=== PATIENT | female | born 1985 | race Caucasian/White ===

== ENCOUNTER 2018-03-03 14:08 | Emergency (ER) | payer OTHER, MEDICAID, SELFPAY ==
[2018-03-03 14:13] VITALS: BP 139/89; PULSE 60; RESP 18; TEMP 35.9; O2SAT 100; BMI 28.3
--- NOTE | 2018-03-03 14:31 | DI.RAD.S_ITS ---
PROCEDURE: XR CHEST 1V INDICATIONS: chest pain TECHNIQUE: One view of the chest was acquired. COMPARISON: None. FINDINGS: Surgical changes and devices: None. Lungs and pleura: No pleural effusions or pneumothorax. Lungs are clear. Mediastinum: Mediastinal contours appear normal. Heart size is normal. Bones and chest wall: No suspicious bony lesions. Overlying soft tissues appear unremarkable. IMPRESSION: 1. No acute cardiopulmonary disease. Dictated by: Hill Plaza M.D. on 03/03/2018 at 15:45 Approved by: Hill Plaza M.D. on 03/03/2018 at 15:45
[2018-03-03 15:04] LABS: Add Manual Diff / Slide Review NO; Basophils Percent Auto 0.5 % (0-2); Eosinophils Percent Auto 1.2 % (2-4); Hematocrit 40.1 % (36-46); Hemoglobin 13.8 g/dL (12.0-16.0); Lymphocytes Percent Auto 26.5 % (25-40); Mean Corpuscular HGB Conc 34.4 % (30-36); Mean Corpuscular Hemoglobin 32.3 PG (26-34); Mean Corpuscular Volume 93.8 fL (80-100); Monocytes Percent Auto 7.3 % (3-14); Neutrophils Absolute Auto 4600 /uL (3000-5900); Neutrophils Percent Auto 64.5 % (50-75); Platelet Count 214 X10^3/uL (150-400); Red Blood Cell Count 4.28 X10^6/uL (4.0-5.2); Red Cell Distribution Width 12.9 % (11.6-14.8); White Blood Cell Count 7.1 X10^3/uL (4.5-11.0)
[2018-03-03 15:10] LABS: INR 1.1 (0.9-1.3); Prothrombin Time 12.1 SECONDS (10.1-12.7)
[2018-03-03 15:13] LABS: PTT Partial Thromboplastin Tim 31 SECONDS (26.4-36.2)
[2018-03-03 15:15] LABS: Alanine Aminotransferase 28 IU/L (9-52); Albumin 4.7 g/dL (3.5-5.0); Albumin Globulin Ratio 1.6 (1.0-2.8); Alkaline Phosphatase 63 U/L (38-126); Aspartate Aminotransferase 23 IU/L (14-36); BUN Creatinine Ratio 16.7 (6-22); Bilirubin Total 0.6 mg/dL (0.2-1.3); Blood Urea Nitrogen 15 mg/dL (7-17); Calcium 9.7 mg/dL (8.4-10.2); Carbon Dioxide 27 mmol/L (22-32); Chloride 104 mmol/L (98-107); Creatine Kinase 73 U/L (30-135); Estimated Glomerular Filt Rate > 60.0 mL/min (>60); Globulin 2.9 g/dL (1.7-4.1); Glucose 79 mg/dL (70-100); HEMOLYSIS < 15 (0-50); Lipase 89 U/L (23-300); Potassium 3.9 mmol/L (3.4-5.1); Sodium 141 mmol/L (137-145); Total Protein 7.6 g/dL (6.3-8.2)
[2018-03-03 15:18] VITALS: BP 137/87; PULSE 60; RESP 16; O2SAT 98
[2018-03-03 15:29] LABS: Troponin I < 0.012 ng/mL (0.01-0.034)
[2018-03-03 15:44] VITALS: BP 152/80; PULSE 66; RESP 16; O2SAT 100
[2018-03-03 16:30] VITALS: BP 135/86; PULSE 66; O2SAT 97
--- NOTE | 2018-03-03 17:19 | ED_ITS ---
HPI - Chest Pain <JENA Clarke - Last Filed: 03/03/18 21:35> General Chief Complaint: Chest Pain Stated Complaint: CHEST PAIN WHILE BREATHING Time Seen by Provider: 03/03/18 15:13 Source: patient Mode of arrival: ambulatory Limitations: no limitations History of Present Illness HPI narrative: 32-year-old healthy female here for complaint of pain into her right side of her chest that has been happening on and off over the past month. She states that she has increased pain with motion of the right arm. 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 She denies any direct trauma to the chest. No nausea or vomiting. No shortness of breath. She denies any other concerns or complaints at this time. No diaphoresis. MD complaint: chest pain Related Data Allergies Allergy/AdvReac Type Severity Reaction Status Date / Time No Known Drug Allergies Allergy Verified 03/03/18 14:18 Review of Systems <JENA Clarke - Last Filed: 03/03/18 21:35> Constitutional Denies chills, Denies fatigue, Denies fever(s), Denies lethargy and Denies weakness Eyes Denies change in vision, Denies eye discharge, Denies irritation and Denies loss of vision ENT Ears, Nose, Mouth, and Throat: Denies change in voice, Denies neck pain and Denies sore throat Cardiovascular Reports chest pain, Denies dyspnea and Denies dyspnea on exertion Respiratory Denies cough, Denies dyspnea, Denies dyspnea on exertion and Denies wheezing Gastrointestinal Gastrointestinal: Denies abdominal pain, Denies change in bowel habits, Denies diarrhea, Denies nausea and Denies vomiting Genitourinary Denies hematuria, Denies flank pain, Denies urinary incontinence and Denies urinary urgency Musculoskeletal Denies neck pain Integumentary/Breasts Denies pruritus, Denies erythema, Denies rash and Denies wounds Neurologic Denies confusion, Denies loss of vision and Denies weakness Psychiatric Denies anxiety, Denies confusion, Denies depression, Denies homicidal ideation and Denies suicidal ideation Endocrine Denies fatigue and Denies flushing Hematologic/Lymphatic Denies easy bruising Allergic/Immunologic Denies wheezing Exam <JENA Clarke Last Filed: 03/03/18 21:35> Initial Vital Signs Initial Vital Signs: Vital Signs Temperature 96.7 F L 03/03/18 14:13 Pulse Rate 60 03/03/18 14:13 Respiratory Rate 18 03/03/18 14:13 Blood Pressure 139/89 H 03/03/18 14:13 Pulse Oximetry 100 03/03/18 14:13 Const General: cooperative and well developed Nutritional Appearance: well nourished Orientation: alert, awake, oriented x3 and not confused HENMT Mouth: oral mucosae normal and moist mucous membranes Eyes Conjunctivae: conjunctivae normal Sclera: sclerae normal Pupils: PERRL EOM: EOM intact bilaterally Chest Chest: normal inspection of the chest Other: Tenderness on palpation to the right pectoral area Resp Effort & Inspection: normal respiratory effort, able to speak in complete sentences, no respiratory distress and no use of accessory muscles Auscultation: clear to auscultation bilaterally, no rales, no rhonchi and no wheezes Cardio Rate: regular rate Rhythm: regular rhythm Heart Sounds: no click, no gallops, no murmurs and no rubs Pulses: normal peripheral pulses Neuro General: alert, oriented x3, gait normal and no focal motor deficits Speech: speech normal <Sg Scott MD - Last Filed: 03/04/18 08:44> Initial Vital Signs Initial Vital Signs: Vital Signs Temperature 96.7 F L 03/03/18 14:13 Pulse Rate 60 03/03/18 14:13 Respiratory Rate 18 03/03/18 14:13 Blood Pressure 139/89 H 03/03/18 14:13 Pulse Oximetry 100 03/03/18 14:13 Scores <JENA Clarke - Last Filed: 03/03/18 21:35> HEART Score Heart Score history: Slightly Suspicious Heart Score EKG: Normal Heart Score Age: < 45 years old Heart Score risk factors: No known risk factors Heart Score troponin: < or = to normal limit Heart Score Total: 0 PERC Score Age greater than or equal to 50 years: No Heart rate greater than or equal to 100 bpm: No Room Air O2 Sat less than 95%: No Unilateral leg swelling: No Recent trauma or surgery: No Hemoptysis: No Prior PE or DVT: No Hormone Use: No Total PERC Score: 0 Course <JENA Clarke - Last Filed: 03/03/18 21:35> Orders Ordered: ED Orders 03/03/18 14:31 XR chest 1V Stat 03/03/18 14:40 Complete Blood Count AUTO DIFF Stat Comprehensive Metabolic Panel Stat Lipase Stat Partial Thromboplastin Time Stat Prothrombin Time INR Stat Troponin & CK Cardiac Panel Stat Vital Signs - 8 hr 03/03/18 14:13 03/03/18 15:18 03/03/18 15:44 Temperature 96.7 F L Pulse Rate 60 60 66 Respiratory Rate 18 16 16 Blood Pressure 139/89 H Blood Pressure [Left Arm] 137/87 H 152/80 H Pulse Oximetry 100 98 100 03/03/18 16:30 03/03/18 17:36 Temperature Pulse Rate 66 69 Respiratory Rate 16 Blood Pressure Blood Pressure [Left Arm] 135/86 H 104/73 Pulse Oximetry 97 100 <Sg Scott MD - Last Filed: 03/04/18 08:44> Orders Ordered: ED Orders 03/03/18 14:31 XR chest 1V Stat 03/03/18 14:40 Complete Blood Count AUTO DIFF Stat Comprehensive Metabolic Panel Stat Lipase Stat Partial Thromboplastin Time Stat Prothrombin Time INR Stat Troponin & CK Cardiac Panel Stat Vital Signs - 8 hr 03/03/18 14:13 03/03/18 15:18 03/03/18 15:44 Temperature 96.7 F L Pulse Rate 60 60 66 Respiratory Rate 18 16 16 Blood Pressure 139/89 H Blood Pressure [Left Arm] 137/87 H 152/80 H Pulse Oximetry 100 98 100 03/03/18 16:30 03/03/18 17:36 Temperature Pulse Rate 66 69 Respiratory Rate 16 Blood Pressure Blood Pressure [Left Arm] 135/86 H 104/73 Pulse Oximetry 97 100 MDM - Chest Pain <JENA Clarke - Last Filed: 03/03/18 21:35> Lab Data Result diagrams: 03/03/18 14:40 03/03/18 14:40 Lab Results 03/03/18 03/03/18 03/03/18 Range/Units 14:40 14:40 14:40 WBC 7.1 (4.5-11.0) X10^3/uL RBC 4.28 (4.0-5.2) X10^6/uL Hgb 13.8 (12.0-16.0) g/dL Hct 40.1 (36-46) % MCV 93.8 (80-100) fL MCH 32.3 (26-34) PG MCHC 34.4 (30-36) % RDW 12.9 (11.6-14.8) % Plt Count 214 (150-400) X10^3/uL Neut % (Auto) 64.5 (50-75) % Lymph % (Auto) 26.5 (25-40) % [place] % (Auto) 7.3 (3-14) % Eos % (Auto) 1.2 L (2-4) % Baso % (Auto) 0.5 (0-2) % Neut # (Auto) 4600 (8911-8177) /uL PT 12.1 (10.1-12.7) SECONDS INR 1.1 (0.9-1.3) APTT 31 (26.4-36.2) SECONDS Sodium 141 (137-145) mmol/L Potassium 3.9 (3.4-5.1) mmol/L Chloride 104 (98-107) mmol/L Carbon Dioxide 27 (22-32) mmol/L BUN 15 (7-17) mg/dL Creatinine 0.90 (0.52-1.04) mg/dL Estimated GFR > 60.0 (>60) mL/min BUN/Creatinine Ratio 16.7 (6-22) Glucose 79 (70-100) mg/dL Calcium 9.7 (8.4-10.2) mg/dL Total Bilirubin 0.6 (0.2-1.3) mg/dL AST 23 (14-36) IU/L ALT 28 (9-52) IU/L Alkaline Phosphatase 63 (38-126) U/L Total Creatine Kinase 73 (30-135) U/L Troponin I < 0.012 (0.01-0.034) ng/mL Total Protein 7.6 (6.3-8.2) g/dL Albumin 4.7 (3.5-5.0) g/dL Globulin 2.9 (1.7-4.1) g/dL Albumin/Globulin Ratio 1.6 (1.0-2.8) Lipase 89 (23-300) U/L Imaging Data Chest x-ray: Radiologist's impression: PROCEDURE: XR CHEST 1V INDICATIONS: chest pain TECHNIQUE: One view of the chest was acquired. COMPARISON: None. FINDINGS: Surgical changes and devices: None. Lungs and pleura: No pleural effusions or pneumothorax. Lungs are clear. Mediastinum: Mediastinal contours appear normal. Heart size is normal. Bones and chest wall: No suspicious bony lesions. Overlying soft tissues appear unremarkable. IMPRESSION: 1. No acute cardiopulmonary disease. Dictated by: Hill Plaza M.D. on 03/03/2018 at 15:45 Approved by: Hill Plaza M.D. on 03/03/2018 at 15:45 ECG Data Interpretation: EKG shows normal sinus rhythm with no ST elevation or depression. No ectopy. Ventricular rate of 60. Pr interval of 136. QRS duration of 82. QT of 378. MDM Narrative Medical decision making narrative: Chest x-ray was obtained was unremarkable. EKG shows sinus rhythm with no ST elevation or depression. No ectopy. CBC and Chem panel were obtained were unremarkable. Cardiac enzymes were negative. Heart score was 0. Perc score was 0. Pain is reproducible to the right chest area with palpation. Signs and symptoms presents as chest wall pain. Over-the- counter Tylenol Motrin as needed for any discomfort. Rest area. For any worsening symptoms return emergency room. Follow up with primary care provider. <Sg Scott MD - Last Filed: 03/04/18 08:44> Lab Data Lab Results 03/03/18 03/03/18 03/03/18 Range/Units 14:40 14:40 14:40 WBC 7.1 (4.5-11.0) X10^3/uL RBC 4.28 (4.0-5.2) X10^6/uL Hgb 13.8 (12.0-16.0) g/dL Hct 40.1 (36-46) % MCV 93.8 (80-100) fL MCH 32.3 (26-34) PG MCHC 34.4 (30-36) % RDW 12.9 (11.6-14.8) % Plt Count 214 (150-400) X10^3/uL Neut % (Auto) 64.5 (50-75) % Lymph % (Auto) 26.5 (25-40) % [place] % (Auto) 7.3 (3-14) % Eos % (Auto) 1.2 L (2-4) % Baso % (Auto) 0.5 (0-2) % Neut # (Auto) 4600 (6357-5197) /uL PT 12.1 (10.1-12.7) SECONDS INR 1.1 (0.9-1.3) APTT 31 (26.4-36.2) SECONDS Sodium 141 (137-145) mmol/L Potassium 3.9 (3.4-5.1) mmol/L Chloride 104 (98-107) mmol/L Carbon Dioxide 27 (22-32) mmol/L BUN 15 (7-17) mg/dL Creatinine 0.90 (0.52-1.04) mg/dL Estimated GFR > 60.0 (>60) mL/min BUN/Creatinine Ratio 16.7 (6-22) Glucose 79 (70-100) mg/dL Calcium 9.7 (8.4-10.2) mg/dL Total Bilirubin 0.6 (0.2-1.3) mg/dL AST 23 (14-36) IU/L ALT 28 (9-52) IU/L Alkaline Phosphatase 63 (38-126) U/L Total Creatine Kinase 73 (30-135) U/L Troponin I < 0.012 (0.01-0.034) ng/mL Total Protein 7.6 (6.3-8.2) g/dL Albumin 4.7 (3.5-5.0) g/dL Globulin 2.9 (1.7-4.1) g/dL Albumin/Globulin Ratio 1.6 (1.0-2.8) Lipase 89 (23-300) U/L Discharge Plan Departure Patient Disposition: Home Clinical Impression: Chest pain Discharge Date/Time: 03/03/18 17:37 Interventions: ED Discharge Assessment Last Done: 03/03/18 17:37 Instructions: DI for Atypical Chest Pain Activity Restrictions/Additional Instructions: Laboratory results and imaging today were unremarkable. EKG was normal today. Signs and symptoms presents as chest wall muscle pain. Use [id number] ibuprofen or acetaminophen as needed for any discomfort. Rest area. Follow up with primary care provider. Return emergency room for worsening symptoms. Referrals: [facility] [Provider Group] <Sg Scott MD - Last Filed: 03/04/18 08:44> Sign Out Provider Sign Out Attestation: The PA/SATELLITE COMMUNICATIONS OPERATOR functioned independently for the care of this pt, I was available, but not asked to participate in care. I am unable to determine appropriateness of management without personally examining the pt.
[2018-03-03 17:36] VITALS: BP 104/73; PULSE 69; RESP 16; O2SAT 100
== END 2018-03-03 17:37 | disposition home or self-care (01) ==
PROVIDERS: Emergency Medicine; Emergency Provider Nurse Practitioner Family
DX: R07.89 Other chest pain (principal)
CPT/HCPCS: 36415; 71045; 80053; 82550; 82553; 83690; 84484; 85025; 85610; 85730; 93005; 93010; 99283; 99285

== ENCOUNTER → 2018-08-21 15:13 | Outpatient (CLI) | payer OTHER, MEDICAID, SELFPAY ==
[2018-08-21 15:39] LABS: Add Manual Diff / Slide Review NO; Basophils Absolute Auto 100 /uL (0-100); Basophils Percent Auto 0.8 % (0-2); Eosinophils Absolute Auto 100 /uL (0-450); Eosinophils Percent Auto 1.1 % (2-4); Hematocrit 39.2 % (36-46); Hemoglobin 13.3 g/dL (12.0-16.0); Lymphocytes Absolute Auto 2600 /uL (1100-4500); Lymphocytes Percent Auto 29.3 % (25-40); Mean Corpuscular Hemoglobin 31.5 PG (26-34); Mean Corpuscular Volume 92.8 fL (80-100); Monocytes Absolute Auto 600 /uL (0-900); Monocytes Percent Auto 6.8 % (3-14); Neutrophils Absolute Auto 5600 /uL (1500-7000); Platelet Count 244 X10^3/uL (150-400); Red Blood Cell Count 4.23 X10^6/uL (4.0-5.2); Red Cell Distribution Width 12.6 % (11.6-14.8)
[2018-08-21 16:31] LABS: Alanine Aminotransferase 32 IU/L (9-52); Albumin 4.8 g/dL (3.5-5.0); Albumin Globulin Ratio 1.6 (1.0-2.8); Alkaline Phosphatase 77 U/L (38-126); Aspartate Aminotransferase 23 IU/L (14-36); Bilirubin Total 0.3 mg/dL (0.2-1.3); Blood Urea Nitrogen 15 mg/dL (7-17); Calcium 9.7 mg/dL (8.4-10.2); Carbon Dioxide 26 mmol/L (22-32); Chloride 104 mmol/L (98-107); Estimated Glomerular Filt Rate > 60.0 mL/min (>60); Glucose 84 mg/dL (70-100); HEMOLYSIS < 15 (0-50); Potassium 4.4 mmol/L (3.4-5.1); Sodium 140 mmol/L (137-145); Total Protein 7.8 g/dL (6.3-8.2)
[2018-08-21 17:02] LABS: TSH w/ Reflex to FT4 0.81 uIU/mL (0.47-4.68)
== END ==
PROVIDERS: PCP Family Medicine; Visit Provider Family Medicine
DX: D64.9 Anemia, unspecified (principal); E03.9 Hypothyroidism, unspecified; Z86.32 Personal history of gestational diabetes
CPT/HCPCS: 36415; 80053; 84443; 85025

== ENCOUNTER → 2018-09-18 10:01 | Outpatient (CLI) | payer OTHER, MEDICAID, SELFPAY ==
--- NOTE | 2018-09-18 10:03 | DI.RAD.S_ITS ---
PROCEDURE: XR CERVICAL SPINE 2V OR 3V INDICATIONS: Neck pain TECHNIQUE: 3 view(s) of the cervical spine were acquired. COMPARISON: None. FINDINGS: Bones: No fractures or dislocations to the T1 level. The lateral masses of C1 appear intact on the odontoid view. No suspicious bony lesions. Only a mild degree of degenerative disc disease is seen at C6-C7. Soft tissues: No prevertebral soft tissue swelling. IMPRESSION: There is mild degenerative disc height reduction at C6-C7 without subluxation. Elsewhere the study appears normal. Dictated by: Sammy Bhat M.D. on 09/18/2018 at 10:53 Approved by: Sammy Bhat M.D. on 09/18/2018 at 11:04
--- NOTE | 2018-09-18 10:03 | DI.RAD.S_ITS ---
PROCEDURE: XR LUMBAR SPINE 2-3V INDICATIONS: low back pain TECHNIQUE: 3 views of the lumbar spine were acquired. COMPARISON: [facility], CR, XR THORACIC SPINE 3V, 09/18/2018, 10:09. FINDINGS: Bones: 5 [id number] vertebrae are present. There is normal bony alignment. No vertebral body compression fractures. No suspicious bony lesions. Soft tissues: Overlying bowel gas pattern is normal. There are left-sided suspicious soft tissue calcifications superimposed on the expected area of the middle third of the left kidney there are at least 3 separate calcifications can be seen the largest of which measures up to 5 mm.. IMPRESSION: No abnormality of the spine is found but there is a set of presumed renal collecting system calculi at the left kidney the largest of which measures approximately 5 mm in maximal dimension. Dictated by: Sammy Bhat M.D. on 09/18/2018 at 12:42 Approved by: Sammy Bhat M.D. on 09/18/2018 at 12:44
--- NOTE | 2018-09-18 10:03 | DI.RAD.S_ITS ---
PROCEDURE: XR THORACIC SPINE 3V INDICATIONS: low back pain TECHNIQUE: 3 views of the thoracic spine were acquired. COMPARISON: None. FINDINGS: Bones: No fractures or dislocations. No suspicious bony lesions. 12 pairs of ribs are noted, and appear intact where visualized. Soft tissues: No paravertebral stripe thickening. IMPRESSION: No trauma, source of pain is not seen. Dictated by: Sammy Bhat M.D. on 09/18/2018 at 11:20 Approved by: Sammy Bhat M.D. on 09/18/2018 at 11:21
== END ==
PROVIDERS: PCP Family Medicine; Visit Provider Family Medicine
DX: M50.323 Other cervical disc degeneration at C6-C7 level (principal); M54.5 Low back pain
CPT/HCPCS: 72040; 72072; 72100

== ENCOUNTER → 2018-10-29 11:39 | Outpatient (CLI) | payer OTHER, MEDICAID, SELFPAY ==
[2018-10-29 15:03] LABS: Follicle Stimulating Hormone 2.68 mIU/mL
== END ==
PROVIDERS: PCP Family Medicine; Visit Provider Family Medicine
DX: R23.2 Flushing (principal)
CPT/HCPCS: 36415; 83001; 87252

== ENCOUNTER 2018-11-07 07:27 | Emergency (ER) | payer OTHER, MEDICAID, SELFPAY ==
[2018-11-07] VITALS (8 sets, daily range): BP systolic 97–126; BP diastolic 60–86; PULSE 56–64; RESP 11–17; TEMP 36.9; O2SAT 98–100; BMI 28.5
--- NOTE | 2018-11-07 08:02 | ED.NAVMDI ---
HPI - Nausea/Vomiting/Diarrhea General Chief complaint: Nausea/Vomiting/Diarrhea Stated complaint: Diarrhea, dizzy,cold sweats,pounding headache Time Seen by Provider: 11/07/18 07:46 Source: patient Mode of arrival: ambulatory Limitations: no limitations History of Present Illness HPI Narrative: Patient comes emergency department complaining of fatigue, nausea, and diarrhea for the last 3 days. Patient also complains of cramping abdominal pain. She states that she actually had an episode like this a few weeks ago, but only lasted for 1 day. Patient states that she stayed in bed all day a few days ago, but did not seem to be any better the next day. 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 She states that she has not vomited but has felt nauseated, and has not really wanted to eat or drink much. She states that she has had chills, but has not been able to check her temperature, as her thermometer is not working. No dysuria. She denies blood in her stools. No recent travel. Patient was on amoxicillin within the last couple of weeks for an infected tooth. Patient states she and her went to a barbecue the day before her symptoms restarted, but that nobody else is sick that she knows of who ate the same food. No other complaints at this time. Patient has no personal or family history within bilateral relatives of Crohn's disease, ulcerative colitis, or any other chronic diarrhea producing illnesses. She does note that she is scheduled for an endoscopy within the next couple of weeks, because she has a history of GERD, and her omeprazole is not working any longer. Related Data Home Medications Medication Instructions Recorded Confirmed lysine 500 mg tablet 500 mg PO DAILY 08/21/18 08/21/18 omeprazole 40 mg capsule,delayed 40 mg PO DAILY 08/21/18 11/07/18 release cholecalciferol (vitamin D3) 5,000 5,000 unit PO DAILY 09/18/18 09/18/18 unit tablet ferrous sulfate 325 mg (65 mg 325 mg PO DAILY tab 09/18/18 09/18/18 iron) tablet mv-min-vit C 1,000 mg PO 09/18/18 09/18/18 [id number] 50 mg oral efferv powder pkt Previous Rx's Medication Instructions Recorded escitalopram 10 mg tablet 10 mg PO DAILY #30 tab 10/29/18 ondansetron 4 mg PO QID PRN #10 tab 11/07/18 diazepam 5 mg tablet 5 mg PO BID PRN #30 tab 11/11/18 Allergies Allergy/AdvReac Type Severity Reaction Status Date / Time No Known Drug Allergies Allergy Verified 11/07/18 07:36 Review of Systems Constitutional Denies chills, Reports fatigue, Denies fever(s), Denies lethargy and Denies weakness Eyes Denies change in vision, Denies eye discharge, Denies irritation and Denies loss of vision ENT Ears, Nose, Mouth, and Throat: Denies change in voice, Denies neck pain and Denies sore throat Cardiovascular Denies chest pain, Denies irregular heart rhythm, Denies lightheadedness, Denies palpitations, Denies dyspnea, Denies dyspnea on exertion and Denies orthopnea Respiratory Denies cough, Denies dyspnea, Denies dyspnea on exertion and Denies wheezing Gastrointestinal Gastrointestinal: Reports abdominal pain (Cramping), Reports change in bowel habits, Reports diarrhea, Reports nausea and Denies vomiting Genitourinary Denies hematuria, Denies flank pain, Denies urinary incontinence and Denies urinary urgency Musculoskeletal Denies neck pain Integumentary/Breasts Denies pruritus, Denies erythema, Denies rash and Denies wounds Neurologic Denies confusion, Denies loss of vision and Denies weakness Psychiatric Denies anxiety, Denies confusion, Denies depression, Denies homicidal ideation and Denies suicidal ideation Endocrine Reports fatigue and Denies palpitations Hematologic/Lymphatic Denies easy bruising Allergic/Immunologic Denies wheezing PFSH Medical History Chronic pain (Chronic) Anxiety and depression (Chronic) Hypothyroidism (Chronic) Surgical History History of appendectomy (Resolved) History of partial hysterectomy (Resolved) Social History (System 03/06/18 @ 16:19 by Sudha Almanza) marital status: number of children: 3 household members: family lives independently: Yes education level: other (GED) occupational status: employed Smoking Status: Never smoker alcohol intake: current (social) substance use type: does not use and former substance user (marijuana) Social History marital status: number of children: 3 household members: family lives independently: Yes education level: other (GED) occupational status: employed Smoking Status: Never smoker alcohol intake: current (social) substance use type: does not use and former substance user (marijuana) Exam Initial Vital Signs Initial Vital Signs: Vital Signs Temperature 98.4 F 11/07/18 07:36 Pulse Rate 63 11/07/18 07:36 Respiratory Rate 16 11/07/18 07:36 Blood Pressure 122/78 11/07/18 07:36 Pulse Oximetry 100 11/07/18 07:36 Const General: cooperative and well developed Nutritional Appearance: well nourished Orientation: alert, awake, oriented x3 and not confused HENMT Head: normocephalic and atraumatic Ears: external ears normal Nose: external nose normal and No nasal discharge Face and sinus: face symmetric and No dry mucous membranes Mouth: oral mucosae normal and moist mucous membranes Teeth and gingiva: dentition normal Eyes General: appearance normal, both eyes and all related structures Eyelids: eyelids normal Conjunctivae: conjunctivae normal Sclera: sclerae normal Pupils: PERRL EOM: EOM intact bilaterally Neck Neck: normal visual inspection, trachea midline, No lymphadenopathy, No midline deformity and No JVD Lymphatic: No lymphedema Chest Chest: normal inspection of the chest Resp Effort & Inspection: normal respiratory effort, able to speak in complete sentences, no respiratory distress and no use of accessory muscles Auscultation: clear to auscultation bilaterally, no rales, no rhonchi and no wheezes Cardio Rate: regular rate Rhythm: regular rhythm Heart Sounds: no click, no gallops, no murmurs and no rubs Pulses: normal peripheral pulses GI Inspection: non-distended Palpation: soft, no hepatosplenomegaly, No guarding, No pulsatile mass and No tender Auscultation: normal bowel sounds Back/Spine/Pelvis Back: No CVA tenderness Cervical Spine: cervical ROM normal and No pain with cervical ROM Thoracic/Lumbar Spine: thoracic and lumbar spine normal to inspection Skin General: no rashes or lesions noted, No jaundice and No petechiae Neuro General: alert, oriented x3, gait normal and no focal motor deficits Speech: speech normal Extrem General: full ROM, no clubbing, cyanosis or edema, no pedal edema and no calf tenderness Psych Appearance: well kempt Mental Status: mental status grossly normal Attitude: cooperative Thought Content: normal and suicidality Judgment: judgment good Course Course Narrative: Patient was treated symptomatically with IV fluids and Zofran, and worked up with basic laboratory studies. Patient is found to be feeling better after symptomatic treatment, and labs are unremarkable. we have discussed home management the symptoms, as well the usual indications for return. Orders Ordered: Discontinued Medications Diphenhydramine HCl (Benadryl) 12.5 mg IV NOW ONE Stop: 11/07/18 10:03 Last Admin: 11/07/18 10:23 Dose: 12.5 mg Sodium Chloride (Normal Saline 0.9%) 1,000 mls @ 1,000 mls/hr IV BOLUS ONE Stop: 11/07/18 08:39 Last Infusion: 11/07/18 09:12 Dose: 0 mls/hr Admin: 11/07/18 08:12 Dose: 1,000 mls/hr Ketorolac Tromethamine (Toradol) 30 mg IV NOW ONE Stop: 11/07/18 10:03 Last Admin: 11/07/18 10:24 Dose: 30 mg Ondansetron HCl (Zofran) 4 mg IV NOW ONE Stop: 11/07/18 07:41 Last Admin: 11/07/18 08:12 Dose: 4 mg Prochlorperazine (Compazine) 10 mg IV NOW ONE Stop: 11/07/18 10:03 Last Admin: 11/07/18 10:23 Dose: 10 mg Vital Signs - 8 hr 11/07/18 07:36 Temperature 98.4 F Pulse Rate 63 Respiratory Rate 16 Blood Pressure 122/78 Pulse Oximetry 100 MDM - Nausea/Vomiting/Diarrhea Medical Records Attestation: I reviewed the patient's medical records. Lab Data Attestation: I reviewed the patient's lab results. Result diagrams: 11/07/18 08:00 11/07/18 08:00 Lab Results 04/25/19 04/25/19 04/25/19 Range/Units 07:47 08:00 08:00 WBC 3.3 L (4.5-11.0) X10^3/uL RBC 3.88 L (4.0-5.2) X10^6/uL Hgb 12.7 (12.0-16.0) g/dL Hct 35.8 L (36-46) % MCV 92.2 (80-100) fL MCH 32.8 (26-34) PG MCHC 35.6 (30-36) % RDW 12.7 (11.6-14.8) % Plt Count 207 (150-400) X10^3/uL Neut % (Auto) 45.4 L (50-75) % Lymph % (Auto) 37.9 (25-40) % [place] % (Auto) 14.5 H (3-14) % Eos % (Auto) 1.7 L (2-4) % Baso % (Auto) 0.5 (0-2) % Neut # (Auto) 1500 (0756-5820) /uL Lymph # (Auto) 1300 (7758-8282) /uL [place] # (Auto) 500 (0-900) /uL Eos # (Auto) 100 (0-450) /uL Baso # (Auto) 0 (0-100) /uL Sodium 138 (137-145) mmol/L Potassium 4.0 (3.4-5.1) mmol/L Chloride 107 (98-107) mmol/L Carbon Dioxide 24 (22-32) mmol/L BUN 12 (7-17) mg/dL Creatinine 0.80 (0.52-1.04) mg/dL Estimated GFR > 60.0 (>60) mL/min BUN/Creatinine Ratio 15.0 (6-22) Glucose 94 (70-100) mg/dL Calcium 8.7 (8.4-10.2) mg/dL Total Bilirubin 0.2 (0.2-1.3) mg/dL AST 23 (14-36) IU/L ALT 27 (9-52) IU/L Alkaline Phosphatase 71 (38-126) U/L Total Protein 6.7 (6.3-8.2) g/dL Albumin 4.0 (3.5-5.0) g/dL Globulin 2.7 (1.7-4.1) g/dL Albumin/Globulin Ratio 1.5 (1.0-2.8) Urine RBC 0-1/hpf (0-5/HPF) Urine WBC 0-1/hpf (0-5/HPF) Ur Squamous Epith Cells 5-10 /hpf H (0-5/HPF) Calcium Oxalate Crystal Few H Urine Bacteria Moderate (10-30) H (None) Ur Culture Indicated? Cult not indicated Urine Dip Bedside Urine Glucose Negative Bedside Urine Bilirubin - Negative Bedside Urine Ketone - Negative Urine Specific [place] 1.030 Bedside Urine Occult Blood + Bedside Urine pH 6 Bedside Urine Protein + 30 Bedside Urine Urobilinogen +/- 1mg Bedside Urine Nitrite - Negative Bedside Urine Leukocytes - Negative Esterase Discharge Plan Departure Patient Disposition: Home Clinical Impression: Gastroenteritis Headache Qualifiers: Headache type: other headache syndrome Qualified Code(s): G44.89 - Other headache syndrome Discharge Date/Time: 11/07/18 11:35 Interventions: ED Discharge Assessment Last Done: 11/07/18 11:34 Instructions: DI for Diarrhea and Traveler's Diarrhea -- Adult, DI for Headache Activity Restrictions/Additional Instructions: Your labs look good. You were not able to give us a stool sample today in the emergency department, so more in-depth evaluation of your stool was not able to be done. It may be that your illness is starting to resolve. However, if your symptoms continue, you may have your primary doctor evaluate your stool via stool sample. This will allow for more in-depth evaluation of potential causes for diarrhea. The most likely cause, at this point, is a viral illness. These commonly go around, and have been quite prevalent recently. Viral illnesses are self-limited, and will go away on their own. Prescriptions: New ondansetron 4 mg tablet,disintegrating 4 mg PO QID PRN (Reason: nausea and vomiting) Qty: 10 RF: 0 No Action diazepam 5 mg tablet 5 mg PO BID PRN (Reason: muscle spasm) Qty: 30 RF: 0 omeprazole 40 mg capsule,delayed release(DR/EC) 40 mg PO DAILY RF: 0 lysine [L-Lysine] 500 mg tablet 500 mg PO DAILY RF: 0 cholecalciferol (vitamin D3) [Vitamin D3] 5,000 unit tablet 5,000 unit PO DAILY RF: 0 ferrous sulfate [Felisha-Time] 325 mg (65 mg iron) tablet 325 mg PO DAILY RF: 0 [id number] 1,000-50 mg powder effervescent in packet PO RF: 0 escitalopram oxalate [Lexapro] 10 mg tablet 10 mg PO DAILY Qty: 30 RF: 3 Referrals: Yuko Mackey DO [Primary Care Provider] -
--- NOTE | 2018-11-07 08:06 | PC.NURSE ---
diarrhea for 3 days, last 24 hours, too numerous to count, denies blood. denies measured fever at home, with nausea, no vomiting. pt with recent dental infection was taking amoxicillin couple of weeks ago. denies exotic traveling. pt reports, has not been eating , now with dizziness at rest and exertion. also with generalized weakness.
[2018-11-07 08:08] LABS: Bacteria Urine Moderate (10-30); RBC Urine 0-1/HPF (0-5/HPF); Squamous Epithelial Cell Urine 5-10 /HPF (0-5/HPF); WBC Urine 0-1/HPF (0-5/HPF)
[2018-11-07 08:09] LABS: Calcium Oxalate Crystals Urine Few; Culture Indicated Urine Cult Not Indicated
[2018-11-07 08:10] LABS: Add Manual Diff / Slide Review NO; Basophils Absolute Auto 0 /uL (0-100); Basophils Percent Auto 0.5 % (0-2); Eosinophils Absolute Auto 100 /uL (0-450); Eosinophils Percent Auto 1.7 % (2-4); Hematocrit 35.8 % (36-46); Hemoglobin 12.7 g/dL (12.0-16.0); Lymphocytes Absolute Auto 1300 /uL (1100-4500); Lymphocytes Percent Auto 37.9 % (25-40); Mean Corpuscular HGB Conc 35.6 % (30-36); Mean Corpuscular Hemoglobin 32.8 PG (26-34); Mean Corpuscular Volume 92.2 fL (80-100); Monocytes Absolute Auto 500 /uL (0-900); Monocytes Percent Auto 14.5 % (3-14); Neutrophils Absolute Auto 1500 /uL (1500-7000); Neutrophils Percent Auto 45.4 % (50-75); Platelet Count 207 X10^3/uL (150-400); Red Blood Cell Count 3.88 X10^6/uL (4.0-5.2); Red Cell Distribution Width 12.7 % (11.6-14.8); White Blood Cell Count 3.3 X10^3/uL (4.5-11.0)
[2018-11-07] MEDS: SODIUM CHLORIDE 0.9% 1,000 ML 1000 ML IV (08:12)
[2018-11-07] MEDS: ONDANSETRON 4 MG/2 ML INJ IV (08:12)
[2018-11-07 08:28] LABS: Alanine Aminotransferase 27 IU/L (9-52); Albumin Globulin Ratio 1.5 (1.0-2.8); Alkaline Phosphatase 71 U/L (38-126); Aspartate Aminotransferase 23 IU/L (14-36); Bilirubin Total 0.2 mg/dL (0.2-1.3); Blood Urea Nitrogen 12 mg/dL (7-17); Calcium 8.7 mg/dL (8.4-10.2); Carbon Dioxide 24 mmol/L (22-32); Chloride 107 mmol/L (98-107); Estimated Glomerular Filt Rate > 60.0 mL/min (>60); Globulin 2.7 g/dL (1.7-4.1); Glucose 94 mg/dL (70-100); HEMOLYSIS < 15 (0-50); Sodium 138 mmol/L (137-145); Total Protein 6.7 g/dL (6.3-8.2)
[2018-11-07] MEDS: PROCHLORPERAZINE 10 MG/2 ML VIAL IV (10:23)
[2018-11-07] MEDS: diphenhydrAMINE 50 MG/ML VIAL 12.5 MG IV (10:23)
[2018-11-07] MEDS: KETOROLAC 60 MG/2 ML VIAL 30 MG IV (10:24)
--- NOTE | 2018-11-07 10:32 | PC.NURSE ---
primary doesnt prescribe her anything.
== END 2018-11-07 11:35 | disposition home or self-care (01) ==
PROVIDERS: Emergency Provider Emergency Medicine; PCP Family Medicine
DX: K52.9 Noninfective gastroenteritis and colitis, unspecified (principal); G44.89 Other headache syndrome
CPT/HCPCS: 36591; 80053; 81003; 81015; 85025; 96361; 96374; 96375; 99283; 99284; J0780; J1200; J1885; J2405

== ENCOUNTER 2021-12-12 15:26 | Emergency (ER) | payer BC, OTHER, MEDICAID, SELFPAY ==
[2021-12-12 15:48] VITALS: BP 165/91; PULSE 88; RESP 16; TEMP 36.4; O2SAT 98
--- NOTE | 2021-12-12 17:33 | DI.RAD.S_ITS ---
PROCEDURE: XR FOREARM RT 2V INDICATIONS: laceration Injury, ?fx, ?fb TECHNIQUE: 2 views of the forearm were acquired. COMPARISON: None. FINDINGS: Bones: No fractures or dislocations. No suspicious bony lesions. Soft tissues: No suspicious soft tissue calcifications or masses. IMPRESSION: Normal right forearm Dictated by: Trevor French M.D. on 12/12/2021 at 17:50 Approved by: Trevor French M.D. on 12/12/2021 at 17:50
--- NOTE | 2021-12-12 17:35 | ED_ITS ---
HPI - Skin/Abscess/Foreign Bdy <Milady Goldstein PA-C - Last Filed: 12/12/21 18:04> General Chief complaint: Skin/Abscess/Foreign Body Stated complaint: Fall, Rt Forarm Laceration Time Seen by Provider: 12/12/21 17:15 Mode of arrival: Ambulatory History of Present Illness HPI narrative: 36-year-old female with past medical history anxiety and depression, hypothyroidism presents to the ED status post a laceration sustained nine days prior to arrival. Patient states she sustained the laceration when she fell on [place] handle on a boat. Patient went to the [facility] ED, however did return home without being seen due to a long wait. Patient went the next day, however she was out of the window for laceration repair with primary closure. Since then, the patient states that her wound appears to be more painful, red. Patient denies fever, chills, nausea, vomiting. Came into the ED today to be evaluated for an infection. Patient was also not x-rayed to look for foreign bodies or fractures. Related Data Home Medications Medication Instructions Recorded Confirmed omeprazole 40 mg capsule,delayed 40 mg PO DAILY 08/21/18 03/11/19 release cholecalciferol (vitamin D3) 125 5,000 unit PO DAILY 09/18/18 03/11/19 mcg (5,000 unit) tablet (Vitamin D3) lysine 500 mg tablet (L-Lysine) 1,000 mg PO DAILY tab 03/11/19 03/11/19 Previous Rx's Medication Instructions Recorded escitalopram oxalate 10 mg tablet See Rx Instructions .ROUTE 04/01/19 .COMPLEX #30 tablet cephalexin 500 mg tablet 500 mg PO QID 5 Days #20 tab 12/12/21 sulfamethoxazole 800 1 tab PO BID 5 Days #10 tab 12/12/21 mg-trimethoprim 160 mg tablet (Bactrim DS) Allergies Allergy/AdvReac Type Severity Reaction Status Date / Time No Known Drug Allergies Allergy Verified 03/11/19 09:58 Review of Systems <Milady Goldstein PA-C - Last Filed: 12/12/21 18:04> Review of Systems ROS Unobtainable: All systems reviewed & are unremarkable except as noted in HPI and below Constitutional Constitutional: Denies chills, Denies fatigue, Denies fever(s), Denies frequent falls, Denies lethargy and Denies weakness Eyes Eyes: Denies change in vision, Denies eye discharge, Denies irritation and Denies loss of vision ENT Ears, Nose, Mouth, and Throat: Denies change in voice, Denies dizziness, Denies neck pain, Denies sore throat and Denies throat swelling Cardiovascular Cardiovascular: Denies chest pain, Denies irregular heart rhythm, Denies lightheadedness, Denies palpitations, Denies dyspnea, Denies dyspnea on exertion and Denies orthopnea Respiratory Respiratory: Denies cough, Denies dyspnea, Denies dyspnea on exertion and Denies wheezing Gastrointestinal Gastrointestinal: Denies abdominal pain, Denies change in bowel habits, Denies diarrhea, Denies nausea and Denies vomiting Genitourinary Genitourinary: Denies hematuria, Denies flank pain, Denies urinary incontinence and Denies urinary urgency Musculoskeletal Musculoskeletal: Denies back pain, Denies muscle weakness, Denies neck pain, Denies numbness and Denies tingling Integumentary/Breasts Skin/Breast: Denies pruritus, Denies erythema, Denies rash and Denies wounds Comments: Laceration to the right forearm, increasing pain, redness. Neurologic Neurologic: Denies behavioral changes, Denies confusion, Denies dizziness, Denies frequent falls, Denies loss of vision, Denies numbness, Denies tingling and Denies weakness Psychiatric Psychiatric: Denies anxiety, Denies behavioral changes, Denies confusion, Denies depression, Denies homicidal ideation and Denies suicidal ideation Endocrine Endocrine: Denies fatigue, Denies flushing and Denies palpitations Hematologic/Lymphatic Hematologic/Lymphatic: Denies easy bruising Allergic/Immunologic Allergic/Immunologic: Denies urticaria, Denies throat swelling and Denies wheezing Patient History <Milady Goldstein PA-C - Last Filed: 12/12/21 18:04> Medical History (Updated 12/12/21 @ 18:00 by Milady Goldstein PA-C) Anxiety and depression Chronic pain Hypothyroidism Surgical History History of appendectomy History of partial hysterectomy Social History marital status: number of children: 3 household members: family lives independently: Yes education level: other (GED) occupational status: employed Smoking Status: Never smoker alcohol intake: current (social) substance use type: does not use and former substance user (marijuana) Smoking Status: Never smoker alcohol intake frequency: 0-2 drinks per day Substance Use Type: marijuana Exam <Milady Goldstein PA-C - Last Filed: 12/12/21 18:04> Narrative Exam Narrative: Const General:?cooperative, healthy appearing and comfortable HENIL Head:?normal to inspection Ears:?hearing grossly normal bilaterally Nose:?external nose normal Face and sinus:?normal facial exam and sinuses nontender Mouth:?oral mucosae normal Throat:?posterior oropharynx normal Eyes General:?appearance normal, both eyes and all related structures Neck Neck:?normal visual inspection and no lymphadenopathy noted Resp Effort & Inspection:?normal respiratory effort Auscultation:?clear to auscultation bilaterally Cardio Rate:?regular rate Rhythm:?regular rhythm Integumentary 4 cm linear laceration on right forearm with surrounding erythema, tenderness to palpation. No purulence noted on exam. No bony deformities noted Neuro General:?patient alert, patient awake and patient oriented x3 Initial Vital Signs Initial Vital Signs: Vital Signs Temperature 97.6 F 12/12/21 15:48 Pulse Rate 88 12/12/21 15:48 Respiratory Rate 16 12/12/21 15:48 Blood Pressure 165/91 H 12/12/21 15:48 Pulse Oximetry 98 12/12/21 15:48 <Chasity Begum DO - Last Filed: 12/14/21 07:46> Initial Vital Signs Initial Vital Signs: Vital Signs Temperature 97.6 F 12/12/21 15:48 Pulse Rate 88 12/12/21 15:48 Respiratory Rate 16 12/12/21 15:48 Blood Pressure 165/91 H 12/12/21 15:48 Pulse Oximetry 98 12/12/21 15:48 Course <Milady Goldstein PA-C - Last Filed: 12/12/21 18:04> Orders Ordered: Discontinued Medications Cephalexin HCl (Cephalexin 250 Mg Capsule) 500 mg PO NOW ONE Stop: 12/12/21 18:01 Last Admin: 12/12/21 18:09 Dose: 500 mg Documented by: RONNIE Ibuprofen (Ibuprofen 400 Mg Tablet) 800 mg PO NOW ONE Stop: 12/12/21 17:35 Last Admin: 12/12/21 17:36 Dose: 800 mg Documented by: RONNIE Trimethoprim/Sulfamethoxazole (Trimeth/Sulfa 160/800 (Ds) Tablet) 1 tab PO NOW ONE Stop: 12/12/21 18:01 Last Admin: 12/12/21 18:09 Dose: 1 tab Documented by: RONNIE Vital Signs Vital signs: Vital Signs - 8 hr 12/12/21 15:48 Temperature 97.6 F Pulse Rate 88 Respiratory Rate 16 Blood Pressure 165/91 H Pulse Oximetry 98 <Chasity Begum DO - Last Filed: 12/14/21 07:46> Orders Ordered: Discontinued Medications Cephalexin HCl (Cephalexin 250 Mg Capsule) 500 mg PO NOW ONE Stop: 12/12/21 18:01 Last Admin: 12/12/21 18:09 Dose: 500 mg Documented by: RONNIE Ibuprofen (Ibuprofen 400 Mg Tablet) 800 mg PO NOW ONE Stop: 12/12/21 17:35 Last Admin: 12/12/21 17:36 Dose: 800 mg Documented by: RONNIE Trimethoprim/Sulfamethoxazole (Trimeth/Sulfa 160/800 (Ds) Tablet) 1 tab PO NOW ONE Stop: 12/12/21 18:01 Last Admin: 12/12/21 18:09 Dose: 1 tab Documented by: RONNIE Vital Signs Vital signs: Vital Signs - 8 hr 12/12/21 15:48 Temperature 97.6 F Pulse Rate 88 Respiratory Rate 16 Blood Pressure 165/91 H Pulse Oximetry 98 MDM - Skin/Abscess/Foreign Bdy <Milady Goldstein PA-C - Last Filed: 12/12/21 18:04> Imaging Data Extremity x-ray #1: Radiologist's Impression: PROCEDURE:? XR FOREARM RT 2V ? INDICATIONS:? laceration Injury, ?fx, ?fb ? TECHNIQUE:? 2 views of the forearm were acquired.? ? COMPARISON:? None. ? FINDINGS:? ? Bones:? No fractures or dislocations.? No suspicious bony lesions.? ? Soft tissues:? No suspicious soft tissue calcifications or masses.? ? ? IMPRESSION:? Normal right forearm ? Dictated by: Trevor French M.D. on 12/12/2021 at 17:50 ? ? Approved by: Trevor French M.D. on 12/12/2021 at 17:50 ? MDM Narrative Medical decision making narrative: 36-year-old female with past medical history anxiety and depression, hypothyroidism presents to the ED status post a laceration sustained nine days prior to arrival. Concern for cellulitis versus fracture versus foreign body. Will obtain x-rays, start patient on antibiotics. X-rays negative for foreign bodies, fractures. Patient started on cephalexin, Bactrim due to prior MRSA infection. ED return precautions discussed with patient. Patient verbalized understanding. Discharge Plan Departure Patient Disposition: Home Clinical Impression: Cellulitis Instructions: DI for Cellulitis -- Adult Activity Restrictions/Additional Instructions: You were evaluated for a laceration that you sustained 9 days ago. Given that it is red and painful, it is likely infected. You are being prescribed antibiotics for it. Please complete the full course of antibiotics. Your arm was also x-rayed to look for fractures, and your x-ray is normal. Please return to the ED if you noticed worsening signs of infection including increasing redness, discharge, pain, swelling, warmth. Prescriptions: New cephalexin 500 mg tablet 500 mg PO QID 5 Days Qty: 20 0RF sulfamethoxazole-trimethoprim [Bactrim DS] 800-160 mg tablet 1 tab PO BID 5 Days Qty: 10 0RF No Action escitalopram oxalate 10 mg tablet See Rx Instructions .ROUTE .COMPLEX Qty: 30 5RF Dose Instruction: TAKE ONE TABLET BY MOUTH ONCE DAILY Rx Instructions: TAKE ONE TABLET BY MOUTH ONCE DAILY omeprazole 40 mg capsule,delayed release(DR/EC) 40 mg PO DAILY 0RF lysine [L-Lysine] 500 mg tablet 1,000 mg PO DAILY 0RF cholecalciferol (vitamin D3) [Vitamin D3] 5,000 unit tablet 5,000 unit PO DAILY 0RF Referrals: Sabiha Sterling ARNP, INDUSTRIAL MACHINE SYSTEM TECHNICIAN-C [Primary Care Provider] - <Chasity Begum DO - Last Filed: 12/14/21 07:46> Cosign ED Attending Jasminaature Attestation: I was immediately available in the department for consultation. Documentation has been reviewed.
[2021-12-12] MEDS: IBUPROFEN 400 MG TABLET 800 MG PO (17:36)
[2021-12-12] MEDS: cephALEXin 250 MG CAPSULE 500 MG PO (18:09)
[2021-12-12] MEDS: TRIMETH/SULFA 160/800 (DS) TABLET 1 TAB PO (18:09)
== END 2021-12-12 18:21 | disposition home or self-care (01) ==
PROVIDERS: Emergency Provider Student in an Organized Health Care Education/Training Program; PCP Nurse Practitioner Family
DX: L03.113 Cellulitis of right upper limb (principal)
CPT/HCPCS: 73090; 99283